=== PATIENT | female | born 2000 | race Caucasian/White ===

== ENCOUNTER 2023-01-14 09:44 | Emergency (ER) | payer OTHER ==
[~2023-01-14] VITALS: Ht 152.4 cm; Wt 49.9 kg
[2023-01-14 09:52] VITALS: BP 120/76; TEMP 98.3; O2SAT 99
[2023-01-14] MEDS ORDERED: BENZ-13 PO (10:09)
[2023-01-14] MEDS ORDERED: BENZONATATE 100 MG CAPSULE PO ONE (10:11)
[2023-01-14] MEDS ORDERED: ALBU8.5H8 INH (10:15)
[2023-01-14] MEDS ORDERED: BENZONATATE 100 MG CAPSULE PO PRN (10:30)
== END 2023-01-15 10:17 | disposition home or self-care (01) ==
LOC: ER 10:53
DX: R05.9 Cough, unspecified (principal)